=== PATIENT | female | born 1975 | race Caucasian/White ===

== ENCOUNTER 2018-10-31 16:22 | Emergency (ER) | payer OTHER ==
[~2018-10-31] VITALS: Ht 162.6 cm; Wt 69.4 kg
[2018-10-31] MEDS ORDERED: PAROXETINE7.5 MG (16:30)
[2018-10-31] MEDS ORDERED: MEDROLPACK PO (21:03)
[2018-10-31] MEDS ORDERED: VALACYCLOVIR1000 MG PO (21:03)
== END 2018-10-31 21:32 | disposition home or self-care (01) ==
LOC: ER 16:22
DX: G43.909 Migraine, unspecified, not intractable, without status migrainosus (principal); G51.0 Bell's palsy

== ENCOUNTER 2018-11-11 16:21 | Emergency (ER) | payer OTHER ==
[~2018-11-11] VITALS: Ht 162.6 cm; Wt 68.9 kg
[~2018-11-11 16:21] MED LIST: MEDROLPACK PO; PAROXETINE7.5 MG; VALACYCLOVIR1000 MG PO
== END 2018-11-11 20:29 | disposition home or self-care (01) ==
LOC: ER 16:21
DX: R51 Headache (principal)